=== PATIENT | female | born 1945 | race Hispanic/Latino ===

== ENCOUNTER 2016-11-12 09:38 | Outpatient (CLI) | payer BC ==
--- NOTE | 2016-11-12 15:07 | Nuclear Medicine Report ---
BONE SCAN: History: Restaging of breast cancer. Comparison: None at this facility. After injection of isotope, gamma camera imaging of the bony system was done. There is a normal uptake of isotope throughout the bony structures without areas of significantly increased or decreased uptake. Mild degenerative uptake is noted in the spine, shoulders, knees and ankles. Normal uptake in the urinary system is seen. IMPRESSION: Negative bone scan. Degenerative changes.
== END 2016-11-12 09:39 | disposition home or self-care (01) ==
LOC: NM 09:38
PROVIDERS: ATTEND Internal Medicine Hematology & Oncology
DX: M19.011 Primary osteoarthritis, right shoulder (principal); M19.012 Primary osteoarthritis, left shoulder; M17.0 Bilateral primary osteoarthritis of knee; M19.072 Primary osteoarthritis, left ankle and foot; M19.071 Primary osteoarthritis, right ankle and foot; M47.899 Other spondylosis, site unspecified; Z85.3 Personal history of malignant neoplasm of breast
CPT/HCPCS: 78306; A9503

== ENCOUNTER 2017-05-03 09:01 | Outpatient (CLI) | payer BC ==
--- NOTE | 2017-05-03 12:26 | Mammography Report ---
Screening right mammogram: Left mastectomy for cancer. Routine views demonstrates a generally fatty replaced breast pattern. No mass, distortion, or calcification. No change compared to prior exams dating back to 2015. CAD used. Impression: Stable right breast pattern post left mastectomy. Recommendation: Annual mammogram followup. BI-RADS CATEGORY: 1 = Negative ACR BI-RADS MAMMOGRAPHIC CODES: 0 = Needs additional imaging evaluation; 1 = Negative; 2 = Benign; 3 = Probably benign; 4 = Suspicious; 5 = Malignant; 6 = Known biopsy-proven malignancy COMMENT: 1. Dense breast tissue, i.e., adenosis, fibrocystic changes, etc., may obscure an underlying neoplasm. 2. Approximately 10% of cancers are not detected with mammography. 3. A negative mammography report should not delay biopsy if a clinically suspicious mass is present.
== END 2017-05-03 09:02 | disposition home or self-care (01) ==
LOC: MAMMO 09:01
DX: Z12.31 Encounter for screening mammogram for malignant neoplasm of breast (principal); Z85.3 Personal history of malignant neoplasm of breast; Z90.12 Acquired absence of left breast and nipple
CPT/HCPCS: 77067; G0202

== ENCOUNTER 2017-10-15 13:40 | Outpatient (CLI) | payer BC ==
[2017-10-15 14:46] LABS: Alanine Aminotransferase 95 units/L (7-56); Albumin 4.2 g/dL (3.9-5); BUN/Creatinine Ratio 27; Blood Urea Nitrogen 19 mg/dL (7-17); Calcium 10.1 mg/dL (8.4-10.2); Chol/HDL Ratio 1.36 %; HDL Cholesterol 66 mg/dL (40-59); Hemolysis Index 6; LDL Cholesterol,Direct 63 mg/dL (50-130)
[2017-10-15 15:48] LABS: Creatinine,Urine 30.8 mg/dL (0.1-20.0)
[2017-10-15 16:09] LABS: Microalbumin/Creatinine Ratio 38.9 ug/mg
== END 2017-10-15 13:41 | disposition home or self-care (01) ==
LOC: LAB 13:40
PROVIDERS: ATTEND Internal Medicine
DX: E11.9 Type 2 diabetes mellitus without complications (principal); I10 Essential (primary) hypertension; E78.2 Mixed hyperlipidemia; E55.9 Vitamin D deficiency, unspecified
CPT/HCPCS: 36415; 80053; 80061; 82043; 82306

== ENCOUNTER 2017-12-03 09:13 | Outpatient (CLI) | payer BC ==
[2017-12-03 09:52] LABS: % Iron Saturation 24.85 %; Alanine Aminotransferase 15 units/L (7-56); Albumin 4.3 g/dL (3.9-5); Bilirubin,Direct < 0.2 mg/dL (0-0.2); Iron 81 ug/dL (37-170); Total Iron Binding Capacity 326 mcg/dL (250-450); Transferrin 297 mg/dl (192-382)
[2017-12-03 11:56] LABS: Hepatitis A Antibody IgM Non-Reactive (NonReactive); Hepatitis B Core IgM Non-Reactive (NonReactive); Hepatitis B Surface Antigen Non-Reactive (Negative); Hepatitis C Virus Antibody Non-Reactive (NonReactive)
== END 2017-12-03 09:14 | disposition home or self-care (01) ==
LOC: LAB 09:13
PROVIDERS: ATTEND Internal Medicine
DX: R94.5 Abnormal results of liver function studies (principal)
CPT/HCPCS: 36415; 80074; 83550

== ENCOUNTER 2018-02-14 10:36 | Outpatient (CLI) | payer BC ==
[2018-02-14 11:24] LABS: Alanine Aminotransferase 16 units/L (7-56); Albumin 4.5 g/dL (3.9-5); BUN/Creatinine Ratio 31; Blood Urea Nitrogen 22 mg/dL (7-17); Chol/HDL Ratio 3.59 %; HDL Cholesterol 54 mg/dL (40-59); Hemolysis Index 4; LDL Cholesterol,Direct 137 mg/dL (50-130)
== END 2018-02-14 10:37 | disposition home or self-care (01) ==
LOC: LAB 10:36
PROVIDERS: ATTEND Internal Medicine
DX: I10 Essential (primary) hypertension (principal); E78.2 Mixed hyperlipidemia
CPT/HCPCS: 36415; 80053; 80061

== ENCOUNTER 2018-06-20 11:02 | Outpatient (CLI) | payer BC ==
[2018-06-20 11:50] LABS: Alanine Aminotransferase 16 units/L (7-56); Albumin 4.4 g/dL (3.9-5); BUN/Creatinine Ratio 16; Blood Urea Nitrogen 14 mg/dL (7-17); Calcium 10.1 mg/dL (8.4-10.2); Hemolysis Index 6; LDL Cholesterol,Direct 128 mg/dL (50-130)
[2018-06-20 13:01] LABS: Creatinine,Urine 89.4 mg/dL (0.1-20.0)
[2018-06-20 13:04] LABS: Microalbumin/Creatinine Ratio 13.4 ug/mg
[2018-06-20 14:58] LABS: Chol/HDL Ratio 3.45 %; HDL Cholesterol 53 mg/dL (40-59)
== END 2018-06-20 11:03 | disposition home or self-care (01) ==
LOC: LAB 11:02
PROVIDERS: ATTEND Internal Medicine
DX: E78.2 Mixed hyperlipidemia (principal); E11.9 Type 2 diabetes mellitus without complications; E55.9 Vitamin D deficiency, unspecified; I10 Essential (primary) hypertension
CPT/HCPCS: 36415; 80053; 80061; 82043; 82306

== ENCOUNTER 2018-06-24 12:15 | Outpatient (CLI) | payer BC ==
--- NOTE | 2018-06-24 14:23 | Mammography Report ---
BONE DENSITY STUDY: Osteoporosis screening. DEFINITIONS: BMD = Bone Mineral Density T-score = BMD related to mean peak bone mass of young adult (mean expressed in Standard Deviation) Z-score = Age matched BMD expressed in SD World Health Organization (WHO) Diagnostic Criteria Normal T-score > -1 SD Osteopenia T-score between -1 and -2.4 SD Osteoporosis T-score -2.5 SD or below FINDINGS: The weighted average BMD of lumbar spine L1-L4 is 0.965 with a T-score of -0.7. The weighted average BMD of the left hip is 0.835 with a T-score of -0.9. The femoral neck BMD is 0.646 with a T. value score of -1.8. The IMPRESSION: The patient's average T-score is diagnostic for normal bone density and low relative risk for fracture. NOTE: BMD is not the only risk factor for fracture; also consider factors such as the patient's age, risk of falling, previous osteoporotic fracture, family history of osteoporotic fractures, current smoker, and low body weight. Naylor's triangle is a region of interest in femur, predominantly of trabecular bone. It is not a true anatomic site, and ISCD does not recommend its use clinically.
== END 2018-06-24 12:16 | disposition home or self-care (01) ==
LOC: MAMMO 12:15
PROVIDERS: ATTEND Internal Medicine
DX: Z13.820 Encounter for screening for osteoporosis (principal); Z78.0 Asymptomatic menopausal state
CPT/HCPCS: 77080

== ENCOUNTER 2018-11-07 12:03 | Outpatient (CLI) | payer BC ==
[2018-11-07 12:35] LABS: Basophils # (Auto) 0.1 K/mm3 (0.0-0.1); Basophils % (Auto) 1.2 % (0.0-1.8); Eosinophils # (Auto) 0.2 K/mm3 (0.0-0.4); Hematocrit 38.7 % (30.3-42.9); Hemoglobin 13.1 gm/dl (10.1-14.3); Lymphocytes # (Auto) 1.4 K/mm3 (1.2-5.4); Lymphocytes % (Auto) 32.7 % (13.4-35.0); Mean Corpuscular HGB Conc 34 % (30-34); Mean Corpuscular Volume 100 fl (79-97); Monocytes # (Auto) 0.4 K/mm3 (0.0-0.8); Monocytes % (Auto) 10.1 % (0.0-7.3); Platelet Count 277 K/mm3 (140-440); Red Blood Count 3.88 M/mm3 (3.65-5.03); Red Cell Distribution Width 14.4 % (13.2-15.2)
[2018-11-07 12:58] LABS: Alanine Aminotransferase 14 units/L (7-56); Albumin 4.3 g/dL (3.9-5); BUN/Creatinine Ratio 24; Blood Urea Nitrogen 19 mg/dL (7-17); Calcium 9.6 mg/dL (8.4-10.2); Chol/HDL Ratio 3.61 %; HDL Cholesterol 54 mg/dL (40-59); Hemolysis Index 11; LDL Cholesterol,Direct 130 mg/dL (50-130)
[2018-11-07 13:41] LABS: Creatinine,Urine 71.8 mg/dL (0.1-20.0)
[2018-11-07 13:44] LABS: Microalbumin/Creatinine Ratio 16.7 ug/mg
[2018-11-10 10:02] LABS: Vitamin D, 25-OH, D2 <4 ng/mL
== END 2018-11-07 12:04 | disposition home or self-care (01) ==
LOC: LAB 12:03
PROVIDERS: ATTEND Internal Medicine
DX: I10 Essential (primary) hypertension (principal); E78.2 Mixed hyperlipidemia; E11.9 Type 2 diabetes mellitus without complications; E55.9 Vitamin D deficiency, unspecified
CPT/HCPCS: 36415; 80053; 80061; 82043; 82306; 83036; 84443; 85025

== ENCOUNTER 2018-11-15 08:19 | Outpatient (CLI) | payer BC | END 2018-11-15 08:20 | disposition home or self-care (01) | LOC: ECHO 08:19 | PROVIDERS: ATTEND Internal Medicine | DX: I08.1 Rheumatic disorders of both mitral and tricuspid valves (principal); I11.9 Hypertensive heart disease without heart failure | CPT/HCPCS: 93306 ==

== ENCOUNTER 2019-03-06 12:45 | Outpatient (CLI) | payer BC ==
[2019-03-06 13:04] LABS: Basophils % (Auto) 1.2 % (0.0-1.8); Eosinophils # (Auto) 0.2 K/mm3 (0.0-0.4); Eosinophils % (Auto) 4.6 % (0.0-4.3); Hematocrit 37.8 % (30.3-42.9); Hemoglobin 12.9 gm/dl (10.1-14.3); Lymphocytes # (Auto) 1.3 K/mm3 (1.2-5.4); Lymphocytes % (Auto) 32.3 % (13.4-35.0); Mean Corpuscular HGB Conc 34 % (30-34); Mean Corpuscular Volume 99 fl (79-97); Monocytes # (Auto) 0.5 K/mm3 (0.0-0.8); Platelet Count 269 K/mm3 (140-440); Red Blood Count 3.83 M/mm3 (3.65-5.03); Red Cell Distribution Width 14.3 % (13.2-15.2)
== END 2019-03-06 12:46 | disposition home or self-care (01) ==
LOC: LAB 12:45
PROVIDERS: ATTEND Internal Medicine
DX: D75.89 Other specified diseases of blood and blood-forming organs (principal)
CPT/HCPCS: 36415; 85025

== ENCOUNTER 2019-05-05 09:26 | Outpatient (CLI) | payer BC ==
[2019-05-05 10:04] LABS: Basophils # (Auto) 0.1 K/mm3 (0.0-0.1); Basophils % (Auto) 1.8 % (0.0-1.8); Eosinophils # (Auto) 0.2 K/mm3 (0.0-0.4); Eosinophils % (Auto) 6.2 % (0.0-4.3); Hematocrit 37.7 % (30.3-42.9); Hemoglobin 12.6 gm/dl (10.1-14.3); Lymphocytes # (Auto) 1.2 K/mm3 (1.2-5.4); Mean Corpuscular HGB Conc 33 % (30-34); Mean Corpuscular Volume 101 fl (79-97); Monocytes # (Auto) 0.5 K/mm3 (0.0-0.8); Monocytes % (Auto) 12.9 % (0.0-7.3); Platelet Count 258 K/mm3 (140-440); Red Blood Count 3.74 M/mm3 (3.65-5.03); Red Cell Distribution Width 13.8 % (13.2-15.2)
[2019-05-05 10:05] LABS: Albumin 4.5 g/dL (3.9-5); Calcium 9.6 mg/dL (8.4-10.2); Chol/HDL Ratio 3.25 %
--- NOTE | 2019-05-05 10:54 | Mammography Report ---
DIGITAL SCREENING MAMMOGRAM WITH CAD, 05/05/2019 INDICATION: Routine screening mammography. TECHNIQUE: Digital right 2D mammography was obtained in the craniocaudal and mediolateral oblique pr ojections. This examination was interpreted with the benefit of Computer-Aided Detection analysis. COMPARISON: 05/04/2018, 05/03/2017 FINDINGS: Breast Density: The breasts are almost entirely fatty. There is no evidence of dominant mass, suspicious calcifications or architectural distortion in the r ight breast. No interval change. IMPRESSION: No evidence of malignancy. Follow up recommendation: Routine yearly BI-RADS Category 1: Negative. A "normal" or negative report should not discourage follow up or biopsy of a clinically significant f inding. A written summary of these findings will be mailed to the patient. The patient will be entered into a mammography reporting system which will generate a reminder letter for the patient's next appointmen t at the appropriate interval. The [employer] recommends yearly mammograms starting at age 40 and continuing as l nela as a woman is in good health. Breast MRI is recommended for women with an approximate 20-25% or greater lifetime risk of breast cancer, including women with a strong family history of breast or ova juan cancer or who have been treated for Hodgkin's disease. Signer Name: Kasey Bautista MD Signed: 05/05/2019 10:50 AM Workstation Name: [id number]
== END 2019-05-05 09:27 | disposition home or self-care (01) ==
LOC: MAMMO 09:26
PROVIDERS: ATTEND Internal Medicine Hematology & Oncology
DX: C50.212 Malignant neoplasm of upper-inner quadrant of left female breast (principal); E11.9 Type 2 diabetes mellitus without complications
CPT/HCPCS: 36415; 80053; 80061; 85025

== ENCOUNTER 2019-06-15 09:02 | Outpatient (CLI) | payer BC ==
[2019-06-15] MEDS ORDERED: REGADENOSON 0.4 MG/5 ML INJ IV ONE (11:49)
[2019-06-15 13:01] VITALS: BP 121/64
--- NOTE | 2019-06-16 16:15 | Treadmill Report ---
MYOCARDIAL PERFUSION STUDY REASON FOR STUDY: Shortness of breath. IMAGING PROTOCOL: The patient received 10 mCi of Technetium 99m Tetrofosmin for resting image and 28 mCi of Technetium 99m Tetrofosmin for stress imaging. The imaging for the whole procedure was completed 30-90 minutes following the initial injection of Technetium 99m Tetrofosmin. The SPECT imaging in the 180 degree arc was performed in the right anterior oblique projection. Computerized reconstruction of the images was performed for analysis. IMAGING RESULTS: Normal cavity size from stress to rest. Normal distribution of radionuclide in the anterior, inferior, septal, and apical regions. Gated SPECT, EF greater than 65% with no wall motion abnormality. The patient infused Lexiscan with no EKG changes. SUMMARY: 1. Negative Lexiscan EKG. 2. Normal rest and stress myocardial perfusion scan. No significant ischemia. No wall motion abnormality. Gated SPECT, EF greater than 65%. JOB# [id number] NILAY/KINZA
== END 2019-06-15 09:03 | disposition home or self-care (01) ==
LOC: CARD 09:02
PROVIDERS: ATTEND Internal Medicine Cardiovascular Disease
DX: I34.0 Nonrheumatic mitral (valve) insufficiency (principal); R06.09 Other forms of dyspnea; I10 Essential (primary) hypertension; E11.9 Type 2 diabetes mellitus without complications
CPT/HCPCS: 78452; 93017; A9502; J2785

== ENCOUNTER 2020-03-11 09:32 | Outpatient (CLI) | payer BC ==
--- NOTE | 2020-03-11 16:30 | Mammography Report ---
DIGITAL SCREENING MAMMOGRAM WITH CAD, 03/11/2020 INDICATION: Routine screening mammography. The patient has a personal history of left breast cancer t reated with mastectomy. TECHNIQUE: Digital right 2D mammography was obtained in the craniocaudal and mediolateral oblique pr ojections. This examination was interpreted with the benefit of Computer-Aided Detection analysis. COMPARISON: 05/05/2019, 05/04/2018, 05/03/2017, 04/29/2016 FINDINGS: Breast Density: There are scattered areas of fibroglandular density. There is no evidence of dominant mass, suspicious calcifications or architectural distortion in the r ight breast. IMPRESSION: Follow up recommendation: Routine yearly BI-RADS Category 1: Negative. A "normal" or negative report should not discourage follow up or biopsy of a clinically significant f inding. A written summary of these findings will be mailed to the patient. The patient will be entered into a mammography reporting system which will generate a reminder letter for the patient's next appointmen t at the appropriate interval. The [employer] recommends yearly mammograms starting at age 40 and continuing as l nela as a woman is in good health. Breast MRI is recommended for women with an approximate 20-25% or greater lifetime risk of breast cancer, including women with a strong family history of breast or ova juan cancer or who have been treated for Hodgkin's disease. Signer Name: Lissette Rashid MD Signed: 03/11/2020 4:25 PM Workstation Name: [id number]
== END 2020-03-11 09:33 | disposition home or self-care (01) ==
LOC: MAMMO 09:32
PROVIDERS: ATTEND Internal Medicine Hematology & Oncology
DX: Z12.31 Encounter for screening mammogram for malignant neoplasm of breast (principal); C50.212 Malignant neoplasm of upper-inner quadrant of left female breast

== ENCOUNTER 2020-06-04 09:05 | Outpatient (CLI) | payer BC ==
[2020-06-04 10:44] LABS: Alanine Aminotransferase 15 units/L (7-56); Albumin 4.3 g/dL (3.9-5); BUN/Creatinine Ratio 22; Blood Urea Nitrogen 20 mg/dL (7-17); Calcium 10.1 mg/dL (8.4-10.2); Chol/HDL Ratio 3.24 %; HDL Cholesterol 53 mg/dL (40-59); Hemolysis Index 3; LDL Cholesterol,Direct 104 mg/dL (50-130)
--- NOTE | 2020-06-04 11:00 | XRay Report ---
LUMBAR SPINE 5 VIEWS INDICATION / CLINICAL INFORMATION: LOWER BACK PAIN. COMPARISON: None available. FINDINGS: VERTEBRAE: No acute fracture. No significant malalignment. DISC SPACES / FACET JOINTS:Intervertebral disc space narrowing at T12-L1. Diffuse facet degenerative arthrosis, greater in the lower lumbar spine. PARASPINAL SOFT TISSUES:No significant abnormality. ADDITIONAL FINDINGS: None. Signer Name: Steven Issa MD Signed: 06/04/2020 10:55 AM Workstation Name: [id number]
[2020-06-06 15:03] LABS: Vitamin D, 25-OH, D2 4 ng/mL
== END 2020-06-04 09:06 | disposition home or self-care (01) ==
LOC: XRAY 09:05
PROVIDERS: ATTEND Internal Medicine
DX: M54.16 Radiculopathy, lumbar region (principal)
CPT/HCPCS: 36415; 72110; 80053; 80061; 82306

== ENCOUNTER 2020-10-01 07:12 | Outpatient (CLI) | payer BC ==
[2020-10-01 07:54] LABS: Basophils # (Auto) 0.1 K/mm3 (0.0-0.1); Basophils % (Auto) 1.9 % (0.0-1.8); Eosinophils # (Auto) 0.3 K/mm3 (0.0-0.4); Eosinophils % (Auto) 8.2 % (0.0-4.3); Hematocrit 36.5 % (30.3-42.9); Hemoglobin 12.2 gm/dl (10.1-14.3); Lymphocytes # (Auto) 1.3 K/mm3 (1.2-5.4); Lymphocytes % (Auto) 31.6 % (13.4-35.0); Mean Corpuscular HGB Conc 33 % (30-34); Mean Corpuscular Volume 101 fl (79-97); Monocytes # (Auto) 0.5 K/mm3 (0.0-0.8); Monocytes % (Auto) 12.6 % (0.0-7.3); Platelet Count 261 K/mm3 (140-440); Red Blood Count 3.63 M/mm3 (3.65-5.03); Red Cell Distribution Width 14.5 % (13.2-15.2)
[2020-10-01 08:08] LABS: Alanine Aminotransferase 14 units/L (7-56); BUN/Creatinine Ratio 30; Blood Urea Nitrogen 27 mg/dL (7-17); Calcium 8.9 mg/dL (8.4-10.2); Chol/HDL Ratio 3.17 %; HDL Cholesterol 51 mg/dL (40-59); Hemolysis Index 10; LDL Cholesterol,Direct 96 mg/dL (50-130)
[2020-10-01 11:59] LABS: Creatinine,Urine 117.2 mg/dL (0.1-20.0); Microalbumin/Creatinine Ratio 10.2 ug/mg
[2020-10-04 12:39] LABS: Vitamin D, 25-OH, D2 4 ng/mL
== END 2020-10-01 07:13 | disposition home or self-care (01) ==
LOC: LAB 07:12
PROVIDERS: ATTEND Internal Medicine
DX: Z00.00 Encounter for general adult medical examination without abnormal findings (principal); I10 Essential (primary) hypertension; E55.9 Vitamin D deficiency, unspecified; E78.2 Mixed hyperlipidemia
CPT/HCPCS: 36415; 80053; 80061; 82043; 82306; 84443; 85025

== ENCOUNTER 2020-11-04 13:09 | Outpatient (CLI) | payer BC ==
--- NOTE | 2020-11-04 15:38 | Mammography Report ---
DEXA BONE DENSITY SCAN INDICATION / CLINICAL INFORMATION: ASYM POSTMENO STATUS. 75 years Female COMPARISON: 06/24/2018 LUMBAR SPINE, L1-L4: - Bone mineral density (BMD) = 0.935 g/cm2. - T-score = -1.0 - Z-score = 1.3 Change (%) since most recent prior (if available): -3.1 LEFT HIP, NECK : - Bone mineral density (BMD) = 0.636 g/cm2. - T-score = -1.9 - Z-score = 0.1 Change (%) since most recent prior (if available): -2.5 IMPRESSION: 1. WHO Classification: Osteopenia. Fracture Risk: Increased. BMD Reporting Guidelines (ISCD, 2015) BMD Reporting in Postmenopausal Women and in Men Age 50 and Older * T-scores are preferred. * The WHO densitometric classification is applicable. BMD Reporting in Females Prior to Menopause and in Males Younger Than Age 50 * Z-scores, not T-scores, are preferred. This is particularly important in children. * A Z-score of -2.0 or lower is defined as below the expected range for age, and a Z-score above -2. 0 is within the expected range for age. * Osteoporosis cannot be diagnosed in men under age 50 on the basis of BMD alone. * The WHO diagnostic criteria may be applied to women in the menopausal transition. http://www.iscd.org/official-positions/2076-iolj-thyuhxwd-positions-adult/ Signer Name: Lionel Hill MD Signed: 11/04/2020 3:33 PM Workstation Name: [id number]
== END 2020-11-04 13:10 | disposition home or self-care (01) ==
LOC: MAMMO 13:09
PROVIDERS: ATTEND Internal Medicine
DX: M85.88 Other specified disorders of bone density and structure, other site (principal); Z78.0 Asymptomatic menopausal state
CPT/HCPCS: 77080

== ENCOUNTER 2021-03-12 10:03 | Outpatient (CLI) | payer MEDICARE ==
--- NOTE | 2021-03-13 09:10 | Mammography Report ---
DIGITAL SCREENING MAMMOGRAM WITH CAD, 03/12/2021 CLINICAL INFORMATION / INDICATION: Routine screening mammography. SCREENING MAMMOGRAM TECHNIQUE: Digital right 2D mammography was obtained in the craniocaudal and mediolateral oblique pr ojections. This examination was interpreted with the benefit of Computer-Aided Detection analysis. COMPARISON: 03/11/20, 05/05/19 FINDINGS: Breast Density: There are scattered areas of fibroglandular density. No dominant mass, suspicious calcifications, or architectural distortion in the right breast. IMPRESSION: No mammographic evidence of malignancy. Follow up recommendation: Routine yearly BI-RADS Category 1: Negative. A "normal" or negative report should not discourage follow up or biopsy of a clinically significant f inding. A written summary of these findings will be mailed to the patient. The patient will be entered into a mammography reporting system which will generate a reminder letter for the patient's next appointmen t at the appropriate interval. The [employer] recommends yearly mammograms starting at age 40 and continuing as l nela as a woman is in good health. Breast MRI is recommended for women with an approximate 20-25% or greater lifetime risk of breast cancer, including women with a strong family history of breast or ova juan cancer or who have been treated for Hodgkin's disease. Signer Name: Ramez Matthews MD Signed: 03/13/2021 9:05 AM Workstation Name: [id number]
== END 2021-03-12 10:04 | disposition home or self-care (01) ==
LOC: MAMMO 10:03
PROVIDERS: ATTEND Internal Medicine Hematology & Oncology
DX: Z12.31 Encounter for screening mammogram for malignant neoplasm of breast (principal)